=== PATIENT | female | born 1990 | race Caucasian/White ===

== ENCOUNTER 2018-02-21 10:09 | Emergency (ER) | payer OTHER ==
[~2018-02-21] VITALS: Ht 157.5 cm; Wt 54.4 kg
== END 2018-02-22 08:38 | disposition home or self-care (01) ==
LOC: ER 10:09
DX: M62.830 Muscle spasm of back (principal); N39.0 Urinary tract infection, site not specified

== ENCOUNTER 2024-11-01 09:43 | Outpatient (CLI) | payer OTHER ==
[2024-11-01 10:44] LABS: HEMATOCRIT 36.7 % (36.0-45.00); HEMOGLOBIN 12.6 g/dL (12.0-15.00); MEAN CELL VOLUME 87.9 fL (80.00-100.00); MEAN CORPUSCULAR HEMOGLOBIN 30.3 pg (27.00-32.0); MEAN CORPUSCULAR HGB CONC 34.4 g/dl (32.0-36.0); PLATELET COUNT 287 K/uL (150-450); RED BLOOD COUNT 4.18 M/uL (4.00-6.00); RED CELL DISTRIBUTION WIDTH 13.7 % (11.5-14.5)
[2024-11-01 10:48] LABS: URINE APPEARANCE Clear; URINE BILIRRUBIN Negative (NEGATIVE); URINE BLOOD Large; URINE COLOR Yellow; URINE GLUCOSE Negative (NEGATIVE); URINE KETONE Trace (NEGATIVE); URINE LEUKOCYTE Small; URINE NITRATE Negative; URINE PROTEIN Trace (NEGATIVE)
[2024-11-01 10:52] LABS: URINE BACTERIA 113.8 uL (0.0-1933); URINE EPITHELIAL CELLS 9.1 uL (0.0-38.8); URINE RBC 3574.9 uL (0.0-20.8); URINE WBC 31.6 uL (0.0-23.2)
[2024-11-01 11:07] LABS: URINE CAST 0.14 uL (0.0-1.40)
[2024-11-01 12:10] LABS: ALBUMIN 3.8 gm/dL (3.4-5.0); BILIRUBIN TOTAL 0.63 mg/dL (0.3-1.2); CALCIUM 9.1 mg/dL (8.5-10.1); CHOL HDL RATIO 3.3 (0-5.0); CREATININE SERUM 0.68 mg/dL (0.55-1.02); GFR 98.46; GLOBULINA 3.9 G/DL (2.4-3.5); POTASSIUM 4.02 mEq/L (3.5-5.1); TOTAL PROTEIN 7.7 gm/dL (6.4-8.2)
[2024-11-01 14:13] LABS: VITAMIN D3 25 HYDROXY 23.22 ng/ml (30-120)
[2024-11-01 23:18] LABS: FREE TRIODOTIRONINE 2.41 pg/ml (2.18-3.98); T4 FREE 0.94 NG/ML (0.76-1.46); TSH 1.79 uIU/mL (0.358-3.74)
== END 2024-11-01 09:47 | disposition home or self-care (01) ==
LOC: LAB 09:43
PROVIDERS: ATTEND General Practice
DX: E78.00 Pure hypercholesterolemia, unspecified (principal); E55.9 Vitamin D deficiency, unspecified; Z11.4 Encounter for screening for human immunodeficiency virus [HIV]; Z11.3 Encounter for screening for infections with a predominantly sexual mode of transmission; E03.9 Hypothyroidism, unspecified; D64.9 Anemia, unspecified